=== PATIENT | male | born 1965 | race Caucasian/White ===

== ENCOUNTER 2021-03-20 18:44 | Emergency (ER) | payer BC ==
[2021-03-20] MEDS ORDERED: Benzonatate 100 MG Cap PO ONE (18:45)
[2021-03-20 19:25] VITALS: BP 165/89; PULSE 79
[2021-03-20 19:57] LABS: CORONAVIRUS COVID-19 NAA POSITIVE (NEGATIVE)
[2021-03-20 21:14] LABS: ANION GAP 14.6 mEq/L (7-13); CHLORIDE,CL 98 mmol/L (98-107); SODIUM,NA 136 mmol/L (136-145)
[2021-03-20] MEDS ORDERED: Iopamidol 755 Mg/ML 100 ML Bottle IVPUSH ONE (21:54)
--- NOTE | 2021-03-20 22:10 | CR ---
PROCEDURE INFORMATION: Exam: XR Chest Exam date and time: 03/20/2021 8:32 PM Age: 55 years old Clinical indication: Cough; Additional info: Covid TECHNIQUE: Imaging protocol: XR of the chest. Views: 1 view. Total images: 1 COMPARISON: No relevant prior studies available. FINDINGS: Lungs: Unremarkable. No consolidation. Pleural spaces: Unremarkable. No pleural effusion. No pneumothorax. Heart/Mediastinum: Unremarkable. No cardiomegaly. Bones/joints: Unremarkable. IMPRESSION: No acute findings.
--- NOTE | 2021-03-20 22:59 | CT ---
PROCEDURE INFORMATION: Exam: CT Chest With Contrast; Diagnostic Exam date and time: 03/20/2021 10:05 PM Age: 55 years old Clinical indication: Other: Pe protocol, d-dimer 876; Additional info: R/O pe covid + TECHNIQUE: Imaging protocol: Diagnostic computed tomography of the chest with contrast. Total images: 496 Radiation optimization: All CT scans at this facility use at least one of these dose optimization techniques: automated exposure control; mA and/or kV adjustment per patient size (includes targeted exams where dose is matched to clinical indication); or iterative reconstruction. Contrast material: [id number]; Contrast volume: 82 ml; Contrast route: INTRAVENOUS (IV); COMPARISON: CR Chest 1V Frontal 03/20/2021 8:32 PM FINDINGS: Lungs: Bilateral multifocal ground-glass lung opacities. Pleural spaces: Unremarkable. No pneumothorax. No pleural effusion. Heart: Small anterior pericardial fluid. Minimal coronary artery calcification. Pulmonary arteries: Examination was not tailored for pulmonary emboli although no definite pulmonary embolus identified. Aorta: Distended ascending thoracic aorta measuring 3.6 cm. Other arteries: Origin of celiac axis not identified possibly developmental or stenotic. Lymph nodes: Unremarkable. No enlarged lymph nodes. Gallbladder and bile ducts: Gallstone. Bones/joints: Prominent anterior thoracic spine spurs. Old rib deformities. Soft tissues: Minimal diffuse subcutaneous/soft tissue edema. IMPRESSION: 1. Multifocal pneumonia with an appearance compatible with the reported COVID-19 infection. 2. See above for other details.
[2021-03-20] MEDS ORDERED: Azithromycin 250 MG Tab PO ONE (23:02)
[2021-03-20] MEDS ORDERED: Benzonatate 100 MG Cap ONE (23:07)
--- NOTE | 2021-03-20 23:08 | EDM.PDOC ---
ED HPI GENERAL MEDICAL PROBLEM - General Chief Complaint: Fever Stated Complaint: ACHING, BODY RODRIGUEZ, 102 FEVER PER PT Time Seen by Provider: 03/20/21 20:00 Source of Information: Reports: Patient, RN History Limitations: Reports: No Limitations - History of Present Illness INITIAL COMMENTS - FREE TEXT/NARRATIVE: ED with c/o cough congestion body aches intermittent fever up to 102 . No known exposure. No nausea or vomiting, appetite decreased, fatigued, no ear pain or sore throat. Non smoker. SOB slight with activity. Treatments AGENCY LEGAL COUNSEL: Reports: NSAIDS - Related Data Allergies Allergy/AdvReac Type Severity Reaction Status Date / Time codeine Allergy Headache Verified 12/19/17 10:28 epinephrine [From Marcela-Phrine] Allergy Vomiting Verified 12/19/17 10:28 Sulfa (Sulfonamide Allergy Rash Verified 12/19/17 10:28 Antibiotics) Home Meds: Home Meds Gabapentin 600 mg PO TID 08/27/14 [History] Hydrocodone/Acetaminophen [Hydrocodon-Acetaminophn 10-325] 1 mg PO QID 08/27/14 [History] Losartan [Cozaar] 100 mg PO DAILY 08/27/14 [History] atorvaSTATin [Lipitor] 20 mg PO BEDTIME 08/27/14 [History] Furosemide 20 mg PO DAILY 03/14/15 [History] Albuterol [Proventil Neb Soln] 2 puff INH Q4H PRN 03/25/15 [History] Calcium Carb, Citrate/Vit D3 [Calcium + D3 ER Tablet] 1 tab PO BID 03/25/15 [History] Past Medical History HEENT History: Reports: None Cardiovascular History: Reports: High Cholesterol, Hypertension Other Gastrointestinal History: C difficile infection recently Musculoskeletal History: Reports: Back Pain, Chronic Other Musculoskeletal History: carpal tunnel - Infectious Disease History Infectious Disease History: Reports: Novel Coronavirus - Past Surgical History Musculoskeletal Surgical History: Reports: Knee Replacement Other Musculoskeletal Surgeries/Procedures:: carpal tunnel release Social & Family History - Family History Family Medical History: No Pertinent Family History - Tobacco Use Tobacco Use Status *Q: Never Tobacco User - Living Situation & Occupation Occupation: Employed ED ROS GENERAL - Review of Systems Review Of Systems: Comprehensive ROS is negative, except as noted in HPI. ED EXAM, GENERAL - Physical Exam Exam: See Below Exam Limited By: No Limitations General Appearance: Alert, Mild Distress Eye Exam: Bilateral Eye: EOMI Ears: Normal External Exam, Hearing Grossly Normal, Normal TMs Nose: Normal Inspection Throat/Mouth: Normal Inspection Head: Atraumatic Neck: Normal Inspection, Full Range of Motion Respiratory/Chest: No Respiratory Distress, Rhonchi (coarse expiratory throughout). No: Accessory Muscle Use Cardiovascular: Normal Peripheral Pulses, Regular Rate, Rhythm GI/Abdominal: Normal Bowel Sounds, Soft Neurological: Alert, Oriented, Normal Cognition Psychiatric: Flat Affect Skin Exam: Warm, Dry, Intact, No Rash Course - Vital Signs Last Recorded V/S: Last Vital Signs Temp 98.9 F 03/20/21 19:22 Pulse 79 03/20/21 19:22 Resp 18 03/20/21 19:22 BP 165/89 H 03/20/21 19:22 Pulse Ox 98 03/20/21 19:22 - Orders/Labs/Meds Labs: Laboratory Tests 03/20/21 03/20/21 03/20/21 Range/Units 19:03 20:40 20:40 WBC 3.8 L (5.0-10.0) 10^3/uL RBC 4.47 L (4.6-6.2) 10^6/uL Hgb 14.2 D (14.0-18.0) g/dL Hct 42.4 (40.0-54.0) % MCV 94.9 D (80-100) fL MCH 31.8 (27.0-34.0) pg MCHC 33.5 (33.0-35.0) g/dL Plt Count 167 D (150-450) 10^3/uL Neut % (Auto) 69.1 (42.2-75.2) % Lymph % (Auto) 15.4 L (20.5-50.1) % Hendricks % (Auto) 15.2 H (2-8) % Eos % (Auto) 0.0 L (1.0-3.0) % Baso % (Auto) 0.3 (0.0-1.0) % D-Dimer, Quantitative 876 H (0-400) ng/mL Sodium (136-145) mmol/L Potassium (3.5-5.1) mmol/L Chloride (98-107) mmol/L Carbon Dioxide (21-32) mmol/L Anion Gap (7-13) mEq/L BUN (7-18) mg/dL Creatinine (0.70-1.30) mg/dL Est Cr Clr Drug Dosing Estimated GFR (MDRD) BUN/Creatinine Ratio (No establ ref range) Glucose (70-99) mg/dL Lactic Acid (0.4-2.0) mmol/L Calcium (8.5-10.1) mg/dL Total Bilirubin (0.2-1.0) mg/dL AST (15-37) U/L ALT (16-63) U/L Alkaline Phosphatase (46-116) U/L Total Protein (6.4-8.2) g/dL Albumin (3.4-5.0) g/dL Globulin Albumin/Globulin Ratio Influenza Type A RNA Negative (NEGATIVE) Influenza Type B RNA Negative (NEGATIVE) SARS-CoV-2 RNA (LEOPOLDO) Positive H (NEGATIVE) 03/20/21 03/20/21 Range/Units 20:40 20:40 WBC (5.0-10.0) 10^3/uL RBC (4.6-6.2) 10^6/uL Hgb (14.0-18.0) g/dL Hct (40.0-54.0) % MCV (80-100) fL MCH (27.0-34.0) pg MCHC (33.0-35.0) g/dL Plt Count (150-450) 10^3/uL Neut % (Auto) (42.2-75.2) % Lymph % (Auto) (20.5-50.1) % Hendricks % (Auto) (2-8) % Eos % (Auto) (1.0-3.0) % Baso % (Auto) (0.0-1.0) % D-Dimer, Quantitative (0-400) ng/mL Sodium 136 (136-145) mmol/L Potassium 3.6 (3.5-5.1) mmol/L Chloride 98 (98-107) mmol/L Carbon Dioxide 27 (21-32) mmol/L Anion Gap 14.6 H (7-13) mEq/L BUN 12 (7-18) mg/dL Creatinine 0.76 (0.70-1.30) mg/dL Est Cr Clr Drug Dosing TNP Estimated GFR (MDRD) > 60 BUN/Creatinine Ratio 15.8 (No establ ref range) Glucose 102 H (70-99) mg/dL Lactic Acid 0.6 (0.4-2.0) mmol/L Calcium 8.3 L (8.5-10.1) mg/dL Total Bilirubin 0.4 (0.2-1.0) mg/dL AST 26 (15-37) U/L ALT 23 (16-63) U/L Alkaline Phosphatase 70 (46-116) U/L Total Protein 7.6 (6.4-8.2) g/dL Albumin 3.7 (3.4-5.0) g/dL Globulin 3.9 Albumin/Globulin Ratio 0.9 Influenza Type A RNA (NEGATIVE) Influenza Type B RNA (NEGATIVE) SARS-CoV-2 RNA (LEOPOLDO) (NEGATIVE) Meds: Medications Discontinued Medications Generic Name Dose Route Start Last Admin Trade Name Franciscoq PRN Reason Stop Dose Admin Azithromycin 500 mg 03/20/21 23:02 03/20/21 23:23 Azithromycin 250 Mg Tab PO 03/20/21 23:03 500 mg ONETIME ONE Administration Benzonatate Confirm 03/20/21 23:07 03/20/21 23:24 Benzonatate 100 Mg Cap Administered 03/20/21 23:08 Not Given Dose 400 mg .ROUTE .STK-MED ONE Iopamidol 100 ml 03/20/21 21:54 03/20/21 22:00 Iopamidol 755 Mg/Ml 100 Ml Bottle IVPUSH 03/20/21 21:55 100 ml ONETIME ONE Administration Departure - Departure Time of Disposition: 23:04 Disposition: Home, Self-Care 01 Condition: Fair Clinical Impression: COVID, Pneumonia - Discharge Information *PRESCRIPTION DRUG MONITORING PROGRAM REVIEWED*: No *COPY OF PRESCRIPTION DRUG MONITORING REPORT IN PATIENT BRANDO: No Instructions: Community-Acquired Pneumonia, Adult, [id number] Referrals: PCP,None [Primary Care Provider] - Forms: ED Department Discharge Additional Instructions: encourage fluids tylenol 500mg every 4 hours for fever/ discomfort tesselon pearls 200mg every 8 hours as needed for cough azithromycin 250mg one daily urgent follow up if severe difficulty breathing quarantine Sepsis Event Note (ED) - Evaluation Sepsis Screening Result: No Definite Risk - Focused Exam Vital Signs: Vital Signs Temp Pulse Resp BP Pulse Ox 03/20/21 19:22 98.9 F 79 18 165/89 H 98
== END 2021-03-20 23:24 | disposition home or self-care (01) ==
LOC: DL.ED 18:44
DX: U07.1 COVID-19 (principal); J12.82 Pneumonia due to coronavirus disease 2019; E78.00 Pure hypercholesterolemia, unspecified; I10 Essential (primary) hypertension; Z88.5 Allergy status to narcotic agent; Z88.2 Allergy status to sulfonamides; Z88.4 Allergy status to anesthetic agent; Z79.899 Other long term (current) drug therapy; Z20.822 Contact with and (suspected) exposure to COVID-19
CPT/HCPCS: 0240U; 36415; 71045; 71260; 80053; 83605; 85025; 85379; 99284; A9270; Q9967

== ENCOUNTER 2021-12-19 20:08 | Emergency (ER) | payer BC ==
[2021-12-19 21:09] LABS: ANION GAP 15.5 mEq/L (7-13)
[2021-12-19 21:39] LABS: AMPHETAMINES,URINE NEGATIVE (NEGATIVE); BARBITURATES,URINE NEGATIVE (NEGATIVE); BENZODIAZEPINE,URINE NEGATIVE (NEGATIVE); MDMA (ECSTASY), URINE NEGATIVE (NEGATIVE); METHADONE,URINE NEGATIVE (NEGATIVE); METHAMPHETAMINES,URINE NEGATIVE (NEGATIVE); OPIATES,URINE POSITIVE (NEGATIVE); OXYCODONE,URINE NEGATIVE (NEGATIVE); PHENCYCLIDINE,URINE NEGATIVE (NEGATIVE); TCA,URINE NEGATIVE (NEGATIVE)
[2021-12-19] MEDS ORDERED: Sodium Chloride 0.9% 500 ML IV SCH (21:45)
[2021-12-19 22:33] VITALS: BP 114/75; PULSE 70
== END 2021-12-19 22:43 | disposition home or self-care (01) ==
LOC: DL.ED 20:08
DX: R55 Syncope and collapse (principal); E78.00 Pure hypercholesterolemia, unspecified; I10 Essential (primary) hypertension; Z86.16 Personal history of COVID-19; Z88.5 Allergy status to narcotic agent; Z88.2 Allergy status to sulfonamides; Z88.4 Allergy status to anesthetic agent; Z79.899 Other long term (current) drug therapy
CPT/HCPCS: 36415; 70450; 72192; 80053; 80305-QW; 80307; 81003; 84484; 85025; 96360; 99285-25; J7040